=== PATIENT | male | born 2000 | race Caucasian/White ===

== ENCOUNTER 2023-07-19 04:19 | Emergency (ER) | payer SELFPAY ==
[2023-07-19] MEDS: Diphtheria,Pertussis(Acell),Tetanus Vaccine 0.5 ML Syringe IM ONE (04:32)
[2023-07-19] MEDS: Lidocaine 1% 10 ML MDV INJECT ONE (04:34)
[2023-07-19] MEDS: Bacitracin Oint 15 GM Tube TOP ONE (06:07)
== END 2023-07-19 06:14 | disposition home or self-care (01) ==
LOC: JD.ED 04:19
DX: S61.431A Puncture wound without foreign body of right hand, initial encounter (principal); Z23 Encounter for immunization; W25.XXXA Contact with sharp glass, initial encounter
CPT/HCPCS: 12002; 73110-26-RT; 73110-RT; 73130-26-RT; 73130-RT; 90471; 90715; 99283; 99283-25; A9270-GY; J3490

== ENCOUNTER 2023-12-13 02:04 | Emergency (ER) | payer SELFPAY ==
[2023-12-13 02:45] LABS: BASOPHILS PERCENT AUTO 0.4 % (0.0-1.0); EOSINOPHILS PERCENT AUTO 0.3 % (0.0-6.0); HEMATOCRIT 44.3 % (42.0-52.0); HEMOGLOBIN 15.5 gm/dl (14.0-18.0); IMMATURE GRAN ABSOLUTE AUTO 0.01 K/mm3 (0.00-0.05); IMMATURE GRAN PERCENT AUTO 0.1 % (0.0-0.4); LYMPHOCYTES ABSOLUTE AUTO 2.7 K/mm3 (1.0-4.8); LYMPHOCYTES PERCENT AUTO 33.7 % (24.0-44.0); MEAN CORPUSCULAR HEMOGLOBIN 31.8 pg (28.0-32.0); MEAN PLATELET VOLUME 11.3 fl (9.4-12.4); MONOCYTES ABSOLUTE AUTO 0.9 K/mm3 (0.0-0.8); MONOCYTES PERCENT AUTO 11.6 % (0.0-8.0); NEUTROPHILS ABSOLUTE AUTO 4.3 K/mm3 (1.8-7.7); NEUTROPHILS PERCENT AUTO 53.9 % (41.0-71.0); PLATELET COUNT,PLT 219 K/mm3 (150-400); RED BLOOD CELL COUNT 4.87 M/mm3 (4.52-5.90); WHITE BLOOD CELL COUNT,WBC 7.96 K/mm3 (3.9-11.3)
[2023-12-13 03:07] LABS: A/G RATIO 1.5 (1-2); ALBUMIN 4.6 g/dl (3.4-5.0); BILIRUBIN TOTAL 0.3 mg/dL (0.2-1.0); CALCIUM 9.7 mg/dL (8.5-10.1); CREATININE 1.2 mg/dL (0.7-1.3); EST CRCL DRUG DOSING (CG) 86.4 mL/min; ETHANOL BLOOD MEDICAL 0.34 gm% (0.00); PROTEIN TOTAL,TP 7.7 g/dl (6.4-8.2)
== END 2023-12-13 04:00 | disposition home or self-care (01) ==
LOC: JD.ED 02:04
DX: Z02.89 Encounter for other administrative examinations (principal)
CPT/HCPCS: 36415; 80053; 80307; 85025; 99283

== ENCOUNTER 2024-05-26 22:35 | Emergency (ER) | payer MEDICAID ==
[2024-05-26] MEDS: oxyCODONE 5 MG Tab PO ONE (23:19)
[2024-05-26] MEDS: Acetaminophen 325 MG Tab PO ONE (23:20)
[2024-05-26] MEDS: Ondansetron 4 MG Tab.DIS PO ONE (23:21)
[2024-05-26] MEDS: Sodium Chloride 0.9% 1,000 ML IV ONE (23:52)
[2024-05-26] MEDS: Iopamidol 612 MG/ML 100 ML Bottle IVPUSH ONE (23:57)
[2024-05-27 00:05] LABS: BASOPHILS PERCENT AUTO 0.1 % (0.0-1.0); EOSINOPHILS PERCENT AUTO 0.1 % (0.0-6.0); HEMATOCRIT 49.6 % (42.0-52.0); HEMOGLOBIN 17.1 gm/dl (14.0-18.0); IMMATURE GRAN ABSOLUTE AUTO 0.04 K/mm3 (0.00-0.05); IMMATURE GRAN PERCENT AUTO 0.3 % (0.0-0.4); LYMPHOCYTES ABSOLUTE AUTO 0.4 K/mm3 (1.0-4.8); LYMPHOCYTES PERCENT AUTO 3.3 % (24.0-44.0); MEAN CORPUSCULAR HEMOGLOBIN 32.4 pg (28.0-32.0); MEAN CORPUSCULAR HGB CONC 34.5 g/dl (32.0-36.0); MEAN CORPUSCULAR VOLUME 94.1 fl (83.0-99.0); MEAN PLATELET VOLUME 10.4 fl (9.4-12.4); MONOCYTES PERCENT AUTO 8.7 % (0.0-8.0); NEUTROPHILS ABSOLUTE AUTO 10.3 K/mm3 (1.8-7.7); NEUTROPHILS PERCENT AUTO 87.5 % (41.0-71.0); PLATELET COUNT,PLT 180 K/mm3 (150-400); RED BLOOD CELL COUNT 5.27 M/mm3 (4.52-5.90); WHITE BLOOD CELL COUNT,WBC 11.78 K/mm3 (3.9-11.3)
[2024-05-27 00:52] LABS: A/G RATIO 1.3 (1-2); ALBUMIN 4.4 g/dl (3.4-5.0); ANION GAP 12.8 (5-15); BILIRUBIN TOTAL 1.4 mg/dL (0.2-1.0); BUN/CREATININE RATIO 10.9 (14-18); CALCIUM 10.3 mg/dL (8.5-10.1); CREATININE 1.1 mg/dL (0.7-1.3); EST CRCL DRUG DOSING (CG) 103.55 mL/min; MAGNESIUM 1.7 mg/dL (1.8-2.4); POTASSIUM,K 3.8 mEq/L (3.5-5.1); PROTEIN TOTAL,TP 7.7 g/dl (6.4-8.2)
== END 2024-05-27 01:09 | disposition home or self-care (01) ==
LOC: JD.ED 22:35
DX: K85.90 Acute pancreatitis without necrosis or infection, unspecified (principal); R79.89 Other specified abnormal findings of blood chemistry; Z79.899 Other long term (current) drug therapy
CPT/HCPCS: 36415; 74177; 74177-26; 80053; 82550; 83690; 83735; 85025; 96360; 99283; 99284-25; A9270-GY; J7030; Q9967

== ENCOUNTER 2024-05-29 19:16 | Emergency (ER) | payer MEDICAID ==
[2024-05-29 19:54] LABS: BASOPHILS PERCENT AUTO 0.1 % (0.0-1.0); EOSINOPHILS PERCENT AUTO 0.1 % (0.0-6.0); HEMATOCRIT 47.1 % (42.0-52.0); HEMOGLOBIN 16.3 gm/dl (14.0-18.0); IMMATURE GRAN ABSOLUTE AUTO 0.08 K/mm3 (0.00-0.05); IMMATURE GRAN PERCENT AUTO 0.4 % (0.0-0.4); LYMPHOCYTES ABSOLUTE AUTO 0.8 K/mm3 (1.0-4.8); LYMPHOCYTES PERCENT AUTO 4.3 % (24.0-44.0); MEAN CORPUSCULAR HEMOGLOBIN 32.7 pg (28.0-32.0); MEAN CORPUSCULAR HGB CONC 34.6 g/dl (32.0-36.0); MEAN CORPUSCULAR VOLUME 94.6 fl (83.0-99.0); MEAN PLATELET VOLUME 11.4 fl (9.4-12.4); MONOCYTES ABSOLUTE AUTO 2.3 K/mm3 (0.0-0.8); MONOCYTES PERCENT AUTO 12.1 % (0.0-8.0); NEUTROPHILS ABSOLUTE AUTO 15.7 K/mm3 (1.8-7.7); PLATELET COUNT,PLT 195 K/mm3 (150-400); RED BLOOD CELL COUNT 4.98 M/mm3 (4.52-5.90); WHITE BLOOD CELL COUNT,WBC 18.96 K/mm3 (3.9-11.3)
[2024-05-29] MEDS: Sodium Chloride 0.9% 2,000 ML IV ONE (19:56)
[2024-05-29] MEDS: HYDROmorphone 1 MG/ML Syringe IVPUSH ONE (19:56)
[2024-05-29] MEDS: Ondansetron 4 MG/2 ML SDV IVPUSH ONE (19:56)
[2024-05-29 20:20] LABS: A/G RATIO 0.9 (1-2); ALBUMIN 3.4 g/dl (3.4-5.0); ANION GAP 17.6 (5-15); BILIRUBIN TOTAL 2.9 mg/dL (0.2-1.0); CALCIUM 10.3 mg/dL (8.5-10.1); EST CRCL DRUG DOSING (CG) 113.91 mL/min; MAGNESIUM 1.8 mg/dL (1.8-2.4); POTASSIUM,K 3.6 mEq/L (3.5-5.1); PROTEIN TOTAL,TP 7.4 g/dl (6.4-8.2)
[2024-05-29] MEDS: Piperacillin/Tazobactam 4.5 GM in Sodium Chloride 0.9% 100 ML IV ONE (20:46)
[2024-05-29] MEDS: Acetaminophen 325 MG Tab PO ONE (21:03)
[2024-05-29] MEDS: Iopamidol 612 MG/ML 100 ML Bottle IVPUSH ONE (21:10)
[2024-05-29] MEDS: Sodium Chloride 0.9% 10 ML Syringe FLUSH PRN (21:11)
[2024-05-29] MEDS: Sodium Chloride 0.9% 1,000 ML IV ONE (22:11)
[2024-05-29 22:35] LABS: BARBITURATE SCREEN,URINE NEGATIVE (CUTOFF=200); BENZODIAZEPINES SCREEN,URINE NEGATIVE (CUTOFF=150); BUPRENORPHINE SCREEN,URINE NEGATIVE (CUTOFF=10); METHADONE SCREEN, URINE NEGATIVE (CUT0FF=200); METHAMPHETAMINES SCREEN, URINE NEGATIVE (CUTOFF=500); OXYCODONE SCREEN,URINE NEGATIVE (CUT0FF=100); THC SCREEN,URINE 20 NG/ML PRESUMPTIVE POSITIVE (CUTOFF=50)
[2024-05-29 22:37] LABS: AMPHETAMINES SCREEN, URINE NEGATIVE (CUTOFF=500)
== END 2024-05-29 22:55 | disposition home or self-care (01) ==
LOC: JD.ED 19:16
DX: K85.90 Acute pancreatitis without necrosis or infection, unspecified (principal); K59.00 Constipation, unspecified; E86.0 Dehydration; E80.7 Disorder of bilirubin metabolism, unspecified
CPT/HCPCS: 36415; 74177; 76705; 80053; 80306; 80307; 82550; 83605; 83690; 83735; 85025; 87040; 96361; 96365; 96375; 99284; J1171; J2405; J2543; J7030; Q9967